=== PATIENT | male | born 1960 | race Caucasian/White ===

== ENCOUNTER 2018-11-22 09:58 | Day surgery (SDC) | payer SELFPAY ==
[2018-11-15 11:18] VITALS: BP 142/97; PULSE 62; RESP 16; TEMP 36.7; O2SAT 97; BMI 27.8
--- NOTE | 2018-11-15 11:32 | SDCEKG_ITS ---
Test Reason : Blood Pressure : / mmHG Vent. Rate : 062 BPM Atrial Rate : 062 BPM P-R Int : 140 ms QRS Dur : 086 ms QT Int : 410 ms P-R-T Axes : 015 047 034 degrees QTc Int : 416 ms Normal sinus rhythm Normal ECG Confirmed by CA VENEGAS ([id number]), telegraph editor ANDREW HOOVER ([id number]) on 11/20/2018 2:00:57 PM Referred By: Martin Seals Confirmed By:CA VENEGAS
[2018-11-15 11:51] LABS: Hematocrit 40.1 % (40-54); Hemoglobin 13.6 g/dL (13.0-16.5); Mean Corp Hgb Conc 33.9 g/dL (32-36); Mean Corpuscular Hgb 30.1 pg (27.0-32.0); Mean Corpuscular Volume 88.7 fL (80-94); Mean Platelet Vol. 10.4 fl (6.2-12.0); Platelet Count 330 K/mm3 (150-450); RBC Distribution Width CV 11.9 % (11.6-14.6); RBC Distribution Width SD 38.7 fl (35.1-43.9); Red Blood Count 4.52 M/mm3 (4.6-6.2); White Blood Count 7.6 K/mm3 (4.4-11.0)
[2018-11-15 14:34] LABS: ALB/GLOB Ratio 0.7 RATIO (0.9-2.4); AST(SGOT) 22 U/L (15-37); Alanine Aminotransfer ALT/SGPT 60 U/L (16-61); Albumin, Serum 3.4 g/dL (3.2-5.0); Alkaline Phosphatase 94 U/L (45-117); Anion Gap 4 (5-15); BUN 17 mg/dL (7-18); BUN/Creat Ratio 15.7 RATIO (10-20); Chloride 106 mmol/L (98-107); Creatinine, Serum 1.08 mg/dL (0.70-1.30); EST Glomerular Filtration Rate 75 mL/min (>60); Est Glom Filt Rate - Afr Amer 91 mL/min (>60); Estimated Creatinine Clearance 65.64 ml/min; Globulin 4.7 g/dL (2.2-4.2); Glucose 94 mg/dL (74-106); Potassium 3.9 mmol/L (3.5-5.1); Protein, Total 8.1 g/dL (6.4-8.2); Sodium Level 138 mmol/L (136-145)
[2018-11-22] VITALS (11 sets, daily range): BP systolic 142–175; BP diastolic 82–106; PULSE 50–63; RESP 14–18; TEMP 36.1–36.6; O2SAT 97–100; BMI 27.8
--- NOTE | 2018-11-22 11:41 | DCINST_ITS ---
Discharge Diet: Light diet - advance as tolerated May resume sexual activity in: 6 weeks Call your doctor if your incision/area has: Continuous Slow Oozing, Sudden Increased Bleeding, Increased Pain/ Swelling, Increased Redness, Foul Smelling Discharge, Swelling at the incision site Call your doctor if you observe: Fever of 101 or Higher, Inability to urinate Suture Line Care: Avoid Pulling/Pushing, Avoid Pinching/Bending Instructions: Transurethral Resection of the Prostate (TURP): Home Recovery Allergies/Adverse Reactions: Allergies No Known Allergies Allergy (Verified 11/22/18 10:36) Medications to take at Discharge Multivitamin [Multiple Vitamins] 1 ea PO DAILY 11/15/18 Saw [place] 500 mg PO DAILY 11/15/18 Tamsulosin HCl [Flomax] 0.8 mg PO QHS 11/15/18 Ciprofloxacin [Cipro] 500 mg PO BID #14 tab 11/22/18 Hydrocodone/Acetaminophen [[place] 5-325 Tablet] 1 ea PO Q4H PRN PRN 5 Days #14 tab 11/22/18 The following prescriptions were given: Ciprofloxacin [Cipro] 500 mg PO BID #14 tab Prescription Printed Hydrocodone/Acetaminophen [[place] 5-325 Tablet] 1 ea PO Q4H PRN PRN 5 Days #14 tab PRN Reason: Pain Prescription Printed Primary Care Physician: Gary Sullivan DO [Primary Care Provider] - Test Results: Test results from this visit will be discussed in further detail at your follow- up appointment, if applicable. Please Follow Up With: Martin Seals MD When: in 2 weeks, please call to make an appointment. Proposed Discharge Date: 11/23/18
--- NOTE | 2018-11-22 11:55 | PROS_PTH ---
PATIENT: SHEL[place]EN [place] [facility] [place][id number] AGE/SX: 58/M ROOM: RE11/22/[address]: Dr. Martin Seals MD : 1960 BED: DIS: 11/23/2018 SPEC #: [id number] RECD: 11/23/18 16:43 STATUS: KRISTINE REStacy #: [id number] KATELYN: 11/22/18 11:[address]: Martin Seals DEPT: SURGICAL PATHOLOGY RECD BY: Jose Florez ENTERED: 11/23/18 09:34 SP TYPE: TURP OTHR DR: Dr. Gary Sullivan, DO Tissues: Prostate, NOS Procedures: Surgery Specimen Level IV HEADER OPERATION: Cysto, TUR, prostate, Olymp[employer] PRE-OP DIAGNOSIS: Benign prostatic hyperplasia TISSUE SUBMITTED: Prostate tissue MICROSCOPIC DIAGNOSIS Prostate, transurethral resection: Benign nodular hyperplasia. Acute and chronic prostatitis. AM:daly 11/24/18 MICROSCOPIC DESCRIPTION Slides are reviewed. GROSS DESCRIPTION Received is one container labeled with the patient's name and designated prostate tissue. The specimen consists of multiple irregular fragments of pink-dean, rubbery, soft tissue that in aggregate weigh 4.3 gm and measure in aggregate 5 x 4 x 2 cm. The entire specimen is submitted in 11 cassettes. / SJ:daly 11/23/18 TC:2 CPT: 46789
[2018-11-22] MEDS: Cefazolin 2 GM in 0.9% Normal Saline 100 ML IV (12:11)
--- NOTE | 2018-11-22 13:16 | OP.PCM_ITS ---
Report of Operation Date of Procedure: 11/22/18 Pre-Operative Diagnosis: BPH with obstruction and urinary retention Post-Operative Diagnosis: The same Surgery/Procedure Performed:: Transurethral resection of the prostate Description of Surgical Findings:: 58-year-old male who has retention of urine and BPH is failed medical therapy still retention of urine with a catheter presents today for transurethral resection of the prostate. He is taken back to the operating room at the smooth induction of general anesthesia he was placed in dorsolithotomy position. The penis and testicles are prepped and draped in usual sterile fashion. Went into the urethra with a 26 [place] continuous-flow resectoscope. Identified the verumontanum marked out the sphincter, and then started resection he had large bilateral hypertrophy no median lobe resected the floor the prostate resected the right lobe of the prostate resect the left low the prostate very carefully resected the roof of the prostate. Ellik out all the chips obtained hemostasis I then switched over the 24 [place] noncontinuous flow and carefully resected the apical tissue did several flow test until I night had a nice flow on the apex resection. Obtain good hemostasis all the chips were taken out of the bladder but a 22 [place] catheter into the bladder on continuous irrigation the urine was nice and clear patient anesthetic was reversed to take back to PACU condition on resection he had resection of the lateral tissues no resection past the verumontanum the sphincter was intact and no nice wide resection with a good flow test during the resection. Type of Anesthesia:: General Drains: 22fr 3 way - Admit VTE Documentation VTE Present on Admission: No VTE Mechan Device Prophylaxis: SCD's
[2018-11-22] MEDS: 0.9% Normal Saline 1,000 ML 125 ML IV ×2 (15:23→23:22)
[2018-11-22] MEDS: Ibuprofen 600 MG Tablet PO (17:28)
[2018-11-22] MEDS: Acetaminophen 325 MG Tablet PO (20:50)
[2018-11-22] MEDS: Ciprofloxacin 500 MG Tablet PO (20:51)
[2018-11-22] MEDS: Docusate Sodium 100 MG Capsule PO (21:57)
[2018-11-23 03:26] VITALS: BP 132/86; PULSE 55; RESP 16; TEMP 36.6; O2SAT 99
[2018-11-23 06:04] LABS: Hematocrit 39.9 % (40-54); Hemoglobin 13.1 g/dL (13.0-16.5); Mean Corp Hgb Conc 32.8 g/dL (32-36); Mean Corpuscular Hgb 29.3 pg (27.0-32.0); Mean Corpuscular Volume 89.3 fL (80-94); Mean Platelet Vol. 10.4 fl (6.2-12.0); Platelet Count 298 K/mm3 (150-450); RBC Distribution Width CV 11.7 % (11.6-14.6); RBC Distribution Width SD 37.5 fl (35.1-43.9); Red Blood Count 4.47 M/mm3 (4.6-6.2); White Blood Count 10.3 K/mm3 (4.4-11.0)
--- NOTE | 2018-11-23 06:13 | NURSING ---
Continuous Bladder irrigation clamped at 0600 11/23/18
[2018-11-23 06:46] LABS: Anion Gap 6 (5-15); BUN 12 mg/dL (7-18); BUN/Creat Ratio 11.9 RATIO (10-20); Calcium,Total 8.4 mg/dL (8.5-10.1); Chloride 109 mmol/L (98-107); Creatinine, Serum 1.01 mg/dL (0.70-1.30); EST Glomerular Filtration Rate 81 mL/min (>60); Est Glom Filt Rate - Afr Amer 98 mL/min (>60); Estimated Creatinine Clearance 70.19 ml/min; Glucose 88 mg/dL (74-106); Potassium 4.2 mmol/L (3.5-5.1); Sodium Level 142 mmol/L (136-145)
[2018-11-23 08:33] VITALS: BP 162/95; PULSE 67; RESP 18; TEMP 36.6; O2SAT 99
[2018-11-23] MEDS: Docusate Sodium 100 MG Capsule PO (08:37)
[2018-11-23] MEDS: Multivitamins,Therapeutic Tablet 1 TABLET PO (08:37)
[2018-11-23] MEDS: Ciprofloxacin 500 MG Tablet PO (08:37)
[2018-11-23] MEDS: Pantoprazole Sodium 40 MG Tablet PO (08:37)
[2018-11-23 10:04] VITALS: BP 127/82
== END 2018-11-23 11:50 | disposition home or self-care (01) ==
LOC: SDC 10:03 → AC 10:03 → MS3 12:42
PROVIDERS: Family Provider Family Medicine; PCP Family Medicine; Referring Provider Urology; Visit Provider Urology
PROC: (CPT 52601; principal; 2018-11-22 11:45)
DX: N40.1 Benign prostatic hyperplasia with lower urinary tract symptoms (principal); N13.8 Other obstructive and reflux uropathy; R33.8 Other retention of urine; R39.12 Poor urinary stream; Z79.899 Other long term (current) drug therapy
CPT/HCPCS: 52601; 36415; 80048; 80053; 85027; 86850; 86900; 88305; 93005; J7030; J7120; J2405

== ENCOUNTER → 2021-04-01 16:01 | Outpatient (CLI) | payer SELFPAY ==
--- NOTE | 2021-04-01 16:21 | EKG12_ITS ---
Test Reason : PREOP Blood Pressure : / mmHG Vent. Rate : 060 BPM Atrial Rate : 060 BPM P-R Int : 176 ms QRS Dur : 086 ms QT Int : 396 ms P-R-T Axes : 068 045 038 degrees QTc Int : 396 ms Normal sinus rhythm Normal ECG Confirmed by BERRY COBB, MINERVA ([id number]), field map editor ANDREW HOOVER ([id number]) on 04/02/2021 11:38:42 AM Referred By: Lisbeth Valdez Confirmed By:MINERVA SMART MD
[2021-04-01 16:54] LABS: Absolute Lymphocyte Count 3.16 X10^3/uL (0.83-4.51); Absolute Neutrophil Count 3.4 X10^3/uL (2.0-7.7); Basophil# 0.03 X10^3/uL; Basophil% 0.4 % (0-1); Eosinophil# 0.05 X10^3/uL; Eosinophils% 0.7 % (0-5); Hematocrit 39.7 % (40-54); Hemoglobin 13.8 g/dL (13.0-16.5); Lymphocyte # 3.16 X10^3/ul (0.83-4.51); Lymphocyte % 43.9 % (19-41); Mean Corp Hgb Conc 34.8 g/dL (32-36); Mean Corpuscular Hgb 30.3 pg (27.0-32.0); Mean Corpuscular Volume 87.1 fL (80-94); Mean Platelet Vol. 10.9 fl (6.2-12.0); Monocyte# 0.54 X10^3/uL; Monocyte% 7.5 % (0-10); NRBC Flagged by Analyzer 0 % (0-5); Neutrophil # 3.41 X10^3/uL (2.7-7.7); Neutrophil % 47.4 % (47-70); Platelet Count 249 K/mm3 (150-450); RBC Distribution Width CV 11.9 % (11.6-14.6); RBC Distribution Width SD 38.1 fl (35.1-43.9); Red Blood Count 4.56 M/mm3 (4.6-6.2); White Blood Count 7.2 K/mm3 (4.4-11.0)
[2021-04-01 16:56] LABS: Anion Gap 8 (5-15); BUN 16 mg/dL (7-18); BUN/Creat Ratio 13.4 RATIO (10-20); Calcium,Total 9.2 mg/dL (8.5-10.1); Chloride 106 mmol/L (98-107); Creatinine, Serum 1.19 mg/dL (0.70-1.30); EST Glomerular Filtration Rate 66 mL/min (>60); Est Glom Filt Rate - Afr Amer 80 mL/min (>60); Glucose 90 mg/dL (74-106); Potassium 4.2 mmol/L (3.5-5.1); Sodium Level 142 mmol/L (136-145)
== END ==
PROVIDERS: PCP Family Medicine; Referring Provider Physician Assistant Surgical; Visit Provider Physician Assistant Surgical
DX: Z01.810 Encounter for preprocedural cardiovascular examination (principal)
CPT/HCPCS: 36415; 80048; 85025; 93005

== ENCOUNTER 2021-05-21 16:33 | Outpatient (CLI) | payer SELFPAY ==
--- NOTE | 2021-05-21 | IMM_PTH ---
PATIENT: SHELLEY GREEN LOC: [facility] U#:[id number] AGE/SX: 60/M ROOM: RE05/21/[address]: Dr. Martin Seals MD : 1960 BED: DIS: 05/21/2021 SPEC #: [id number] RECD: 05/25/21 13:06 STATUS: KRISTINE REStacy #: [id number] KATELYN: 05/21/21 00:[address]: Martin Seals DEPT: IMMUNOHISTOCHEMISTRY RECD BY: Lisa Lam ENTERED: 05/25/21 13:07 SP TYPE: IMMUNO OTHR DR: Dr. Gary Sullivan DO Tissues: A - PROSTATE RIGHT B - PROSTATE RIGHT C - PROSTATE RIGHT F - PROSTATE LEFT Procedures: 34BE12 (add) P40 (add) 34BE12 (initial) PHYSICIAN & INSTITUTION [place] [phone] SPECIMEN INFORMATION: Tissue Source: A - Right apex, B - Right mid, C - Right base, F - Left base Clinical Info: Elevated PSA Specimen Number: [id number] A-C & F CPT code: 66884, 11989 x7 METHODOLOGY: Deparaffinized sections of prefer/formalin-fixed tissue or PAP/DQ stained slides are incubated with monoclonal/polyclonal antibodies/oligonucleotide probes. Localization is made via biotin free immunoperoxidase method. Appropriate controls are performed and reacted as expected. Results on target cell population are indicated in the following table: RESULTS: ANTIBODY / CLONE RESULT Block A 34BE12 (34BE12) negative P40 (BC28) negative Block B 34BE12 (34BE12) positive, focal P40 (BC28) positive, focal Block C 34BE12 (34BE12) positive P40 (BC28) positive Block F 34BE12 (34BE12) positive, focal P40 (BC28) positive, focal These tests were developed and their performance characteristics determined by [facility]. They may not have been cleared or approved by the U.S. Food and Drug Administration. The FDA has determined that such clearance or approval is not necessary. The above immunohistochemical/dualISH markers are ordered and reviewed by the Pathologist. INTERPRETATION: A. Right prostate, apex, core biopsy: Focal atypical small acinar proliferation. B. Right prostate, mid, core biopsy: Benign prostatic tissue. C. Right prostate, base, core biopsy: Benign prostatic tissue. F. Left prostate, base, core biopsy: Benign prostatic tissue. Comment: Case has been reviewed in consultation with Dr. Burnett who concurs with the above diagnosis. IDC:DENIS AM:daly 05/26/2021
--- NOTE | 2021-05-21 08:00 | PROSBIL_PTH ---
PATIENT: SHELLEY GREEN [id number] AGE/SX: 60/M ROOM: RE05/21/[address]: Dr. Martin Seals MD : 1960 BED: DIS: 05/21/2021 SPEC #: [id number] RECD: 05/21/21 16:27 STATUS: KRISTINE [place] #: [id number] KATELYN: 05/21/21 08:[address]: Martin Seals DEPT: SURGICAL PATHOLOGY RECD BY: Naomi Good ENTERED: 05/22/21 09:41 SP TYPE: PROST BX LES DR: Dr. Gary Sullivan, DO Tissues: A - PROSTATE RIGHT B - PROSTATE RIGHT C - PROSTATE RIGHT D - PROSTATE LEFT E - PROSTATE LEFT F - PROSTATE LEFT Procedures: PROSTATE BX HEADER OPERATION: Prostate biopsy PRE-OP DIAGNOSIS: Elevated PSA TISSUE SUBMITTED: A - Right apex, B - Right mid, C - Right base, D - Left apex, E - Left mid, F - Left base MICROSCOPIC DIAGNOSIS A. Right prostate, apex, core biopsy: Focal atypical small acinar proliferation. Mild chronic inflammation and glandular atrophy. See comment. B. Right prostate, mid, core biopsy: Mild chronic inflammation and glandular atrophy. See comment. C. Right prostate, base, core biopsy: Mild chronic inflammation and glandular atrophy. See comment. D. Left prostate, apex, core biopsy: Benign prostatic tissue. E. Left prostate, mid, core biopsy: Focal glandular atrophy and minimal chronic inflammation. F. Left prostate, base, core biopsy: Glandular atrophy and mild chronic inflammation. See comment. AM:daly 05/25/2021 COMMENT A-C & F. Immunohistochemistry ([id number]) supports the above diagnosis. Case has been reviewed in consultation with Dr. Burnett who concurs with the above diagnosis. IDC:SJ MICROSCOPIC DESCRIPTION Slides are reviewed. GROSS DESCRIPTION A - Received is one container designated prostate, right apex. The specimen consists of two elongated fragments of light dean-white soft tissue each measuring 0.5 cm in length and 0.1 cm in diameter. The specimen is totally submitted in one cassette. B - Received is one container designated prostate, right mid. The specimen consists of two elongated fragments of light dean-white soft tissue each measuring 0.5 cm in length and 0.1 cm in diameter. The specimen is totally submitted in one cassette. C - Received is one container designated prostate, right base. The specimen consists of two elongated fragments of light dean-white soft tissue measuring 0.5 and 1 cm in length and 0.1 cm in diameter. The specimen is totally submitted in one cassette. D - Received is one container designated prostate, left apex. The specimen consists of one elongated fragment of light dean-white soft tissue measuring 0.5 cm in length and 0.1 cm in diameter. The specimen is totally submitted in one cassette. E - Received is one container designated prostate, left mid. The specimen consists of two elongated fragments of light dean-white soft tissue each measuring 1 cm in length and 0.1 cm in diameter. The specimen is totally submitted in one cassette. F - Received is one container designated prostate, left base. The specimen consists of two elongated fragments of light dean-white soft tissue each measuring 1 cm in length and 0.1 cm in diameter. The specimen is totally submitted in one cassette. / SJ:rg 05/22/2021 TC:? CPT: 87027 x6
== END 2021-05-21 23:59 | disposition home or self-care (01) ==
LOC: LABSPEC 16:34
PROVIDERS: PCP Family Medicine; Visit Provider Urology
DX: R97.20 Elevated prostate specific antigen [PSA] (principal)
CPT/HCPCS: 88305; 88341; 88342; G0416

== ENCOUNTER → 2022-05-10 | Outpatient (CLI) | payer SELFPAY ==
--- NOTE | 2022-05-10 07:52 | MRI_ITS ---
STUDY: MR PELVIS WITH AND WITHOUT CONTRAST (PROSTATE) REASON FOR EXAM: Male, 61 years old. Elevated PSA TECHNIQUE: Standardized multiparametric prostate MRI with T1, T2, DWI/ADC sequences were obtained in 3 orthogonal planes, and dynamic contrast enhancement sequences. 15 ml of clariscan contrast material was administered intravenously for the contrast portion of the examination. . COMPARISON: None. FINDINGS: The prostate volume measures 67.5 mm3. The contours of the prostate gland are lobulated. There is mass effect on the bladder base. The transition zone is heterogenous. PI-RADS DWI score 2 - Hypointense within a BPH nodule on ADC. PI-RADS T2W score 2 - A mostly encapsulated nodule OR a homogeneous circumscribed nodule without encapsulation (atypical nodule) or a homogeneous mildly hypointense area between nodules.. Contrast enhancement no early or contemporaneous enhancement; or diffuse multifocal enhancement NOT corresponding to a focal finding on T2W and/or DWI or focal ehancement responding to a lesion demonstrating features of BPH onT2WI (including features of extruded BPH in the PZ). Focal hyperintense T1 in the mid transitional zone may represent blood products/prior biopsy. The peripheral zone is homogenous. PI-RADS DWI score 2 - Linear/wedge shaped hypointense on ADC and/or linear/wedge shaped hyperintense on high b-value DWI. PI-RADS T2W score 2 - Linear, wedge-shaped, or diffuse mild hypointensity, usually with indistinct margin. Contrast enhancement no early or contemporaneous enhancement; or diffuse multifocal enhancement NOT corresponding to a focal finding on T2W and/or DWI or focal enhancement responding to a lesion demonstrating features of BPH onT2WI (including features of extruded BPH in the PZ). The seminal vesicles demonstrate normal margins and T2 signal pattern. No mass lesion or invasion depicted. The rectoprostatic angles are normal. Urinary bladder is nondistended but without wall thickening. The vascular structures of the are normal. The visualized hollow viscus structures are normal. Right inguinal fat-containing hernia. Right hydrocele partially visualized. No bone marrow edema or mass lesion depicted. MRI/Pelvis W/WO Contrast IMPRESSION: 1. PIRADS v2.1 2019 -- 2 - Low (clinically significant cancer is unlikely). Electronically Signed: Zurdo Pratt ([place]), at 11:31 EST ,
[2022-05-10 08:30] LABS: EGFR FINGERSTICK > 60.0000 mL/min (>60)
== END | disposition home or self-care (01) ==
PROVIDERS: PCP Family Medicine; Referring Provider Urology; Visit Provider Urology
DX: R97.20 Elevated prostate specific antigen [PSA] (principal)
CPT/HCPCS: 72197; A9575